=== PATIENT | female | born 1960 | race Caucasian/White ===

== ENCOUNTER → 2020-06-30 13:09 | Outpatient (CLI) | payer BC ==
--- NOTE | ~2020-06-30 | EC ---
PATIENT:JOSE MCKEON DATE OF SERVICE: 06/30/20 SEX: F MEDICAL RECORD: [id number] DATE OF : 62 [facility] AGE [facility] PAT[facility]: 59 ADMISSION DATE: 06/30/20 REFERRING PHYSICIAN: INTERPRETING PHYSICIAN: MARGARET VENCES MD ECHOCARDIOGRAM REPORT ECHO CHARGES 4 ECHO COMPLETE Date: 06/30/20 CLINICAL DIAGNOSIS: ANGINA / HEART MURMUR ECHOCARDIOGRAPHIC MEASUREMENTS (adult normal given) AC root (d.<3.7cm) 2.9 cm LV Septum d (<1.2 cm> 1.2 cm Valve Excursion 1.4 cm LV Septum (systole) 1.4 cm Left Atria (s.<4.0cm> 3.4 cm LVPW d(<1.2cm) 1.2 cm RV (d.<2.3cm) 2.5 cm LVPW (sytole) 1.4 cm LV diastole(<5.6CM) 4.4 cm MV E-F(>70mm/sec) cm LV systole 3.7 cm LVOT Diameter 1.8 cm MV exc.(>10mm) 1.2 cm Est.ejection fraction (50-75%) % DOPPLER: LVIT cm/sec A 72.0 cm/sec E 49.0 cm/sec LA cm/sec RVSP 18 mmHg LVOT 138 cm/sec AOP1/2T m/s Asc. Ao 184 cm/sec RVOT 90 cm/sec RA cm/sec PA 110 cm/sec AV Gradient Peak 13.60mmHg AV Mean 7.54 mmHg AV Area 2.0 cm MV Gradient Peak 4.31 mmHg MV Mean 1.31 mmHg MV Area cm COMMENTS: Circuit Tester: 2 JUAN CAMPO Precision Assembler: 3 Dr. Smith TAPE# PACS Pericardial Effusion N DATE OF SERVICE: Adequate 2D, color-flow imaging, spectral Doppler, and M-Mode Borderline LVH. LV internal dimension is normal. Wall motion is normal. EF is greater than or equal to 55%. Aortic valve is tricuspid. No evidence of stenosis by Doppler interrogation. Left atrium is normal at 3.4 cm. Mitral valve shows no prolapse. Trace MR. Right side is grossly normal. Trace TR. TRANSINT:[id number] Voice Confirmation ID: [id number] DOCUMENT ID: [id number] ECHOCARDIOGRAM REPORT [id number] JOSE MCKEON GREGORY A MD CC: [id number] DICTATION DATE: 07/01/20 08 DISABILITY ATTORNEY: 07/01/20 1159 DEP CLI 06/30/20 [place] [id number] [place] [id number]
--- NOTE | ~2020-06-30 | ST ---
PATIENT:JOSE MCKEON MEDICAL RECORD: [id number] SEX: F LOCATION:[facility] ORDER #: ADMISSION DATE: 06/30/20 AGE OF PATIENT: 59 REFERRING PHYSICIAN: INTERPRETING PHYSICIAN: MARGARET VENCES MD DATE OF SERVICE: 06/30/2020 FINDINGS: Baseline Normal left ventricular size and normal except for 9 minutes 21 PROCEDURE: Treadmill stress test. Baseline ECG is normal. Exercised 9 minutes and 21 seconds on Amando protocol. Maximum heart rate 160 beats per minute, greater than 95% max predicted. No ECG change of ischemia. No symptoms of ischemia. Normal blood pressure response to exercise. No arrhythmias noted. Good exercise tolerance for age. TRANSINT:[id number] Voice Confirmation ID: [id number] DOCUMENT ID: [id number] MARGARET VENCES MD CC: [id number] DICTATION DATE: 07/01/20 0800 MANAGER SOLAR: 07/02/20 0332 DEP CLI 06/30/[address] [id number]
== END | disposition home or self-care (01) ==
LOC: D.HCCECHO 13:09
PROVIDERS: ATTEND Internal Medicine Interventional Cardiology
DX: I20.9 Angina pectoris, unspecified (principal)